=== PATIENT | female | born 1985 | race Caucasian/White ===

== ENCOUNTER 2017-04-25 22:01 | Emergency (ER) | payer BC ==
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
== END 2017-04-25 22:29 | disposition disaster alternative care site (69) ==
LOC: GMED 22:01
DX: L50.9 Urticaria, unspecified (principal); T24.301D Burn of third degree of unspecified site of right lower limb, except ankle and foot, subsequent encounter; J45.909 Unspecified asthma, uncomplicated; Z79.899 Other long term (current) drug therapy; V00-Y99 External causes of morbidity